=== PATIENT | male | born 1955 | race Caucasian/White ===

== ENCOUNTER 2025-08-28 18:37 | Emergency (ER) | payer MEDICARE, BC ==
[~2025-08-28] VITALS: Ht 188 cm; Wt 100.0 kg
[2025-08-28 18:40] VITALS: O2SAT 94
[2025-08-28] MEDS: SODIUM CHLORIDE 0.9% 1,000 ML IV ONE (19:06)
[2025-08-28 19:17] LABS: BASOPHILS % 0.5 % (0.0-2.0); EOSINOPHILS % 2.4 % (0.0-5.0); HEMATOCRIT. 33.2 % (42.0-52.0); HEMOGLOBIN. 11.1 g/dL (14.0-18.0); LYMPHOCYTES % 27.9 % (20.0-50.0); MEAN PLATELET VOLUME 8.8 fl (7.4-10.4); MONOCYTES % 7.7 % (2.0-8.0); NEUTROPHILS % 61.5 % (40.0-76.0); PLATELET 158 x1000/uL (130-400); RED BLOOD CELL COUNT 3.34 mill/uL (4.7-6.1); RED CELL DISTRIBUTION WIDTH 13.1 % (11.6-14.6)
[2025-08-28 19:34] LABS: CREATININE 1.7 mg/dL (0.6-1.3); UREA NITROGEN BLOOD 24 mg/dL (9-23)
[2025-08-28 19:35] LABS: PROTEIN TOTAL 6.9 g/dL (6.0-8.3); TROPONIN I HIGH SENSITIVITY 8 ng/L (3.0-53)
[2025-08-28 19:36] LABS: ASPARTATE AMINOTRANSFERASE 26 IU/L (<34); BILIRUBIN DIRECT 0.1 mg/dL (<=3.0)
[2025-08-28 19:37] LABS: BILIRUBIN TOTAL 0.3 mg/dL (0.1-1.0)
[2025-08-28 21:08] LABS: TROPONIN I HIGH SENSITIVITY 8 ng/L (3.0-53)
[2025-08-28 21:12] VITALS: BP 121/64; PULSE 77; RESP 18; TEMP 37; O2SAT 96
== END 2025-08-28 21:22 | disposition home or self-care (01) ==
LOC: ER 18:37 → EDBEDREQ 20:53 → ER 21:22 → CMPBEDREQ 21:59
DX: R55 Syncope and collapse (principal); R06.02 Shortness of breath; I10 Essential (primary) hypertension; I25.2 Old myocardial infarction; E78.5 Hyperlipidemia, unspecified
CPT/HCPCS: 99285; 96360; 71045; 96361; 80076; 80048; 83880; 83690; 85025; 84484; 36415; 93005; J7030